=== PATIENT | male | born 1945 | race Caucasian/White ===

== ENCOUNTER 2020-09-06 00:56 | Emergency (ER) | payer MEDICARE, OTHER, SELFPAY ==
[2020-09-06] VITALS (18 sets, daily range): BP systolic 85–135; BP diastolic 54–69; PULSE 59–83; RESP 13–36; TEMP 36.5; O2SAT 97–100
--- NOTE | ~2020-09-06 | XR_ITS ---
EXAMINATION: XR chest 1V INDICATION: Pain after fall TECHNIQUE: AP view of the chest is obtained on two radiographs. COMPARISON: None available FINDINGS: There are widespread sclerotic osseous lesions throughout all visualized bones of the axial and appendicular skeleton. Apparent lung opacities likely reflect sclerotic osseous metastases rathe r than airspace disease. No pleural effusion or pneumothorax is identified. Median sternotomy wires a nd mediastinal surgical clips are seen, likely from prior coronary artery bypass grafting. The heart size is upper limits of normal for technique. IMPRESSION: 1. Widespread sclerotic osseous lesions throughout all visualized bones, consistent with metastatic d isease. 2. No definite cardiopulmonary abnormality. Reviewed, dictated and finalized at location A. E TESTER IMPRESSION: 1. Widespread sclerotic osseous lesions throughout all visualized bones, consis tent with metastatic disease. 2. No definite cardiopulmonary abnormality.
--- NOTE | ~2020-09-06 | CT_ITS ---
EXAMINATION: CT cervical spine wo con DATE: 09/06/2020 01:34 INDICATION: Head injury, neck pain TECHNIQUE: Computed tomography (CT) of the cervical spine was performed without intravenous contrast. The dose-length product (DLP) was 277.30 mGy-cm. Automated exposure control and iterative reconstruc tion technique were employed. COMPARISON: None FINDINGS: There is an acute transverse fracture at the tip of the odontoid with 2 mm of posterior dis placement of the dens fragment. No additional acute fracture is identified. Bone alignment is otherwi se normal. There is severe loss of intervertebral disc space height at C2-3 and C5-6. Moderate facet and uncovertebral joint osteoarthritis is present. There are widespread sclerotic osseous metastases involving all visualized bones. IMPRESSION: 1. Type II odontoid fracture with 2 mm of posterior displacement of the dens fragment. 2. Widespread sclerotic osseous metastases involving all visualized bones. These findings were discussed with Dr. Jacquelyn Dya in the Emergency Department at 0152 hours on 09/06/2020 by the [facility] Radiologist. Reviewed, dictated and finalized at location A. HT COMMUNICATIONS OFFICER IMPRESSION: 1. Type II odontoid fracture with 2 mm of posterior displacement of the dens fr agment. 2. Widespread sclerotic osseous metastases involving all visualized bones. These findings were discussed with Dr. Jacquelyn Day in the Emergency Depart ment at 0152 hours on 09/06/2020 by the [facility] Radiologist.
--- NOTE | ~2020-09-06 | CT_ITS ---
EXAMINATION: CT brain wo con INDICATION: Head injury COMPARISON: None TECHNIQUE: Standard unenhanced head CT. The dose-length product (DLP) was 605.33 mGy-cm. The mA was a djusted according to patient size. Iterative reconstruction technique was employed. FINDINGS: There is an acute right parietal subdural hematoma measuring up to 5 mm in thickness. There is no acute intraparenchymal hemorrhage. No evidence of mass lesion. No evidence of acute infarction . There is mild periventricular and subcortical hypodensity probably related to small vessel ischemic disease. There is mild prominence of the sulci and ventricles related to cerebral atrophy. Intracran ial calcified cerebral atherosclerosis is noted. There is no mass effect or midline shift. The orbits and soft tissues are unremarkable. There is mild mucosal thickening of the paranasal sinuses. There is extensive sclerotic osseous metastatic disease of the skull and spine. IMPRESSION: 1. Acute right parietal subdural hematoma. 2. Age related findings. These findings were discussed with Dr. Jacquelyn Day MD in the Emergency Department at 0152 hours on 09/06/2020 by the [facility] Radiologist. Reviewed, dictated and finalized at location A. ER TENDER IMPRESSION: 1. Acute right parietal subdural hematoma. 2. Age related findings. These findings were discussed with Dr. Jaqcuelyn Day MD in the Emergency De partment at 0152 hours on 09/06/2020 by the [facility] Radiologist.
--- NOTE | 2020-09-06 01:08 | ECG_ITS ---
Measurements Intervals [place] Rate: 78 P: 51 [place]: 310 QRS: 69 QRSD: 89 T: 93 QT: 362 QTc: 413 Interpretive Statements SINUS RHYTHM WITH FIRST DEGREE AV BLOCK ANTEROSEPTAL INFARCT, AGE INDETERMINATE BORDERLINE T WAVE ABNORMALITY- INF/HIGH LAT LEADS BASELINE ARTIFACT- I, II, III, AVR, AVL, AVF, V1-V3 ABNORMAL ECG Electronically Signed On 09-06-2020 7:04:47 KOSHER INSPECTOR by Mak Cohen D.O.
--- NOTE | 2020-09-06 01:19 | ED.FALL ---
HPI - Fall General Chief Complaint: Fall Stated Complaint: fall-cheek and neck pain Time Seen by Provider: 09/06/20 00:57 Source: patient Mode of arrival: EMS Limitations: no limitations History of Present Illness HPI Narrative: This patient is a 74 year old male with history of CAD s/p CABG, CHF who presents from home for evaluation of neck pain s/p fall. He states he was getting up to go the restroom. He reports he was using his walker and he fell forward. HE is not sure why he fell. He thinks he may have gotten dizzy. He reports pain to right posterior neck . His only other complaint is generalized weakness that has been present for several months. He denies chest pain, shortness of breath, cough, fever, nausea, vomiting or extremity pain. He denies reports intermittent diarrhea but does not think it has been significant enough to cause dehydration He hit his right cheek. He does not think he had LOC. He takes aspirin 81 mg daily. Related Data Home Medications Medication Instructions Recorded Confirmed aspirin [Adult Aspirin EC Low 81 mg PO DAILY 09/06/20 Strength] carvedilol 6.25 mg PO BID 09/06/20 cetirizine [Zyrtec] 10 mg PO DAILY 09/06/20 cyanocobalamin (vitamin B-12) 1,000 mcg PO DAILY 09/06/20 [Vitamin B-12] ergocalciferol (vitamin D2) 1,250 mcg PO WEEKLY 09/06/20 [Vitamin D2] finasteride 5 mg PO DAILY 09/06/20 furosemide 40 mg PO DAILY 09/06/20 magnesium 400 mg PO DAILY 09/06/20 pantoprazole [Protonix] 40 mg PO QAM 09/06/20 potassium 20 mg PO BID 09/06/20 rosuvastatin 20 mg PO DAILY 09/06/20 sacubitril-valsartan [Entresto] 1 tablet PO BID 09/06/20 Allergies Allergy/AdvReac Type Severity Reaction Status Date / Time Penicillins Allergy Unknown Verified 09/06/20 01:02 Review of Systems Review of Systems: All systems reviewed & are unremarkable except as noted in HPI and below Constitutional: Constitutional: Reports fatigue Cardiovascular: Cardiovascular: Denies chest pain Respiratory: Respiratory: Denies cough and Denies dyspnea Gastrointestinal: Gastrointestinal: Denies abdominal pain, Denies nausea and Denies vomiting Neurologic: Denies confusion, Reports dizziness, Denies headache(s), Denies focal weakness and Denies numbness PMFSH Past Medical History Medical History (Updated 09/06/20 @ 02:26 by Jacquelyn Day MD) CAD (coronary artery disease) Hypertension Surgical History Surgical History (Updated 09/06/20 @ 01:38 by Jacquelyn Day MD) Hx of CABG Social History Social History (Updated 09/06/20 @ 02:25 by Jacquelyn Day MD) Smoking status: Never smoker Gender identity (if verbalized by the patient): Male Exam Const: General: alert Nutritional Appearance: thin Orientation/consciousness: patient oriented x3 HENMT: Other: right cheek abrasion Eyes: Pupils: Equal, round and reactive pupils present EOM: EOMs intact bilaterally Neck: Other: in cervical collar Resp: Effort & Inspection: normal respiratory effort and no retractions Auscultation: clear to auscultation bilaterally Cardio: Rate: regular rate Rhythm: regular rhythm Heart sounds: no murmurs GI: GI Palp: Yes Soft to palpation, No Tenderness to palpation present (GI) and No Guarding due to palpation present (GI) Auscultation: normal bowel sounds Neuro: General: patient oriented x3 and moves all extremities Extrem: General: no pedal edema Course Reevaluation(s) Reevaluation #1: I Discussed with patient and his that he was found to have SDH and c2 fracture. I also discussed he has signs of metastatic osseous disease. They states they have no been told he has cancer. She states he was told specifically 2 years ago he did not have prostate cancer. They are aware patient needs to be transferred. They request Edith. Date: 09/06/20 Time: 02:18 Reevaluation #2: PAtient is awaiting an ambulance. He is awake alert and oriented x 3 without complaints. Still NVI.
[2020-09-06 01:28] LABS: Basophils Percent Auto 0.4 % (0.2-1.2); Eosinophils Absolute Auto 0.1 K/mm3 (0-0.3); Eosinophils Percent Auto 1.3 % (0-4.4); Hematocrit 24.8 % (42.0-52.0); Hemoglobin 7.2 g/dL (14.0-18.0); Immature Granulocyte Absolute 0.06 K/mm3 (0.00-0.031); Immature Granulocyte Percent A 0.9 % (0-0.5); Lymphocytes Absolute Auto 1.71 K/mm3 (0.9-3.2); Lymphocytes Percent Auto 25.5 % (18.3-44.2); Mean Corpuscular Hemoglobin 23.4 pg (26-34); Mean Corpuscular Volume 80.5 fl (80-100); Monocytes Absolute Auto 0.5 K/mm3 (0.1-0.6); Monocytes Percent Auto 7.9 % (2.6-8.5); Neutrophils Absolute Auto 4.3 K/mm3 (1.3-6.7); Platelet Count Result 177 k/mm3 (150-375); Red Blood Count 3.08 M/mm3 (4.6-6.20); Red Cell Distribution Width 19.9 % (11.5-14.5); White Blood Count 6.7 K/mm3 (4.5-10.0)
[2020-09-06 01:35] LABS: Add Urine Microscopic? YES; Appearance Urine Clear (Clear); Bilirubin Urine Negative (Negative); Blood Urine 1+ (Negative); Color Urine Straw (Yellow); Glucose Urine UA Negative (Negative); Ketones Urine Negative (Negative); Leukocyte Esterase Ur Negative LEU/UL (Negative); Mucus Urine Rare /lpf; Nitrate Urine Negative (Negative); Protein Urine 1+ mg/dL (Negative); RBC Urine 0-2 /hpf (0-2); Specific Grav Ur 1.014 (1.001-1.035); Urobilinogen Urine Negative mg/dL (<2.0); WBC Urine 0-3 /hpf
[2020-09-06 01:38] LABS: INR 1.4; Prothrombin Time 17.9 Seconds (11.1-14.7)
[2020-09-06 01:39] LABS: Partial Thromboplastin Time 29.7 SECONDS (22.3-36.8)
[2020-09-06 01:43] LABS: Alanine Aminotransferase 6 U/L (4-50); Albumin Level 3.5 g/dL (3.5-5.1); Alkaline Phosphatase 486 U/L (38-126); Anion Gap 9 mmol/L (8-16); Aspartate Amino Transferase 40 U/L (17-59); Bilirubin,Total 0.4 mg/dL (0.2-1.3); Blood Urea Nitrogen 28 mg/dL (9-20); Calcium 10.4 mg/dL (8.4-10.2); Carbon Dioxide 21 mmol/L (22-30); Chloride 105 mmol/L (98-107); Estimated CRCL calculation 45 ml/min; Estimated Glomerular Filt Rate > 60; Glucose 107 mg/dL (75-110); Magnesium 2.2 mg/dL (1.6-2.3); Potassium 5.4 mmol/L (3.4-5.0); Sodium 135 mmol/L (137-145)
[2020-09-06 01:48] LABS: Hypochromasia 1+ (NORMAL); Ovalocytes 1+ (NORMAL); Platelet Estimate Adequate (Adequate)
[2020-09-06] MEDS: SODIUM CHLORIDE 0.9% IV 1,000 ML 150 ML IV CONT (02:19)
--- NOTE | 2020-09-06 02:23 | PC.NURSE ---
contacted [facility] and [facility] to transfer patient to [facility]. both companies declined. [facility] accepted eta [phone]
[2020-09-06] MEDS: MANNITOL 20% 500 ML 50 ML IV CONT (02:32)
--- NOTE | 2020-09-06 02:34 | PC.NURSE ---
i was asked by dr matthews to try [facility]. [facility] declined.
--- NOTE | 2020-09-06 03:21 | PC.NURSE ---
[facility] called with a new eta of [phone]
--- NOTE | 2020-09-06 04:09 | PC.NURSE ---
[facility] has arrived
--- NOTE | 2020-09-21 07:43 | PC.NURSE ---
LATE ENTRY This note is being entered to document information to the patient's record. The following information was omitted on [09/21/20], by [[place] ] Pt transferred with normal saline and mannitol infusing.
== END 2020-09-06 04:17 | disposition short-term general hospital (02) ==
PROVIDERS: Emergency Provider General Practice; PCP Internal Medicine
DX: S06.5X0A Traumatic subdural hemorrhage without loss of consciousness, initial encounter (principal); S12.111A Posterior displaced Type II dens fracture, initial encounter for closed fracture; I25.10 Atherosclerotic heart disease of native coronary artery without angina pectoris; I50.9 Heart failure, unspecified; Z95.1 Presence of aortocoronary bypass graft; I11.0 Hypertensive heart disease with heart failure; I44.0 Atrioventricular block, first degree; R94.31 Abnormal electrocardiogram [ECG] [EKG]; R93.7 Abnormal findings on diagnostic imaging of other parts of musculoskeletal system; Z79.82 Long term (current) use of aspirin; W18.30XA Fall on same level, unspecified, initial encounter
CPT/HCPCS: 36415; 70450; 71045; 72125; 80053; 81001; 83735; 85025; 85610; 85730; 93005; 96365; 96366; 96367; 99285; J0131; J7030

== ENCOUNTER 2020-10-16 06:52 | Outpatient (RCR) | payer OTHER, MEDICARE, SELFPAY ==
[2020-10-16 07:21] LABS: Hematocrit 27.3 % (42.0-52.0)
[2020-10-16 08:09] VITALS: TEMP 36.5
[2020-10-16] MEDS: ACETAMINOPHEN 325 MG TABLET 650 MG (08:09)
[2020-10-16] MEDS: diphenhydrAMINE HCl CAP 25 MG CAPSULE (08:10)
[2020-10-16 10:05] VITALS: BP 130/73; PULSE 74; RESP 15; TEMP 36.5; O2SAT 100
[2020-10-16 10:20] VITALS: BP 118/72; PULSE 75; RESP 14; TEMP 36.6; O2SAT 95
[2020-10-16 11:20] VITALS: BP 132/75; PULSE 73; RESP 15; TEMP 36.7; O2SAT 97
[2020-10-16 12:20] VITALS: BP 126/75; PULSE 76; RESP 15; TEMP 36.7; O2SAT 98
[2020-10-16 13:00] VITALS: BP 130/87; PULSE 75; RESP 16; TEMP 36.7; O2SAT 98
== END 2021-01-14 23:59 | disposition home or self-care (01) ==
LOC: ANHCPCTRAN 06:52
PROVIDERS: Visit Provider Internal Medicine Medical Oncology
DX: C61 Malignant neoplasm of prostate (principal)
CPT/HCPCS: 36415; 36430; 85014; 85018; 86850; 86900; 86901; 86923; A9270; J7050; P9016

== ENCOUNTER 2021-08-27 14:52 | Inpatient (IN) | payer MEDICARE, OTHER, SELFPAY ==
[2021-08-27] VITALS (8 sets, daily range): BP systolic 103–143; BP diastolic 61–79; PULSE 56–111; RESP 18–24; TEMP 36.1–36.3; O2SAT 88–100
--- NOTE | ~2021-08-27 | XR_ITS ---
EXAMINATION: XR chest 1V portable EXAM DATE: 08/27/2021 19:43 INDICATION: Weakness. TECHNIQUE: Portable AP frontal chest x-ray was obtained. Comparison is made to prior examination from 09/06/2020.. FINDINGS: There is diffuse bilateral airspace disease, edema or pneumonia. Could be COVID pneumonia g iven the community prevalence. No pneumothorax or pleural effusion. Mild cardiomegaly. Extensive oste oblastic disease. Sternotomy wires are present without findings to suggest sternal dehiscence. IMPRESSION: 1. Diffuse airspace disease, pneumonia or edema. Clinical correlation. 2. Extensive osteoblastic disease unchanged. Reviewed, dictated and finalized at location A. DRILLER
--- NOTE | ~2021-08-27 | NM_ITS ---
EXAMINATION: NM pulmonary perfusion EXAM DATE: 08/27/2021 21:23 INDICATION: Shortness of breath. TECHNIQUE: A perfusion lung scan was performed. The patient was injected with 3.0 mCi technetium 99m MAA and imaged. The Modified PIOPED 2 criteria used for interpretation of this perfusion only study, with 3 possible interpretations (PE present, PE absent, nondiagnostic) based on findings present, an d correlated with a recent chest x-ray. More specifically, a high probability scan will be interprete d as pulmonary embolism present. A normal or near normal scan will be interpreted as pulmonary emboli sm absent. And finally an intermediate probability scan will be interpreted as nondiagnostic. Correl ation is made to chest x-ray same date demonstrating diffuse ill-defined airspace disease. FINDINGS: Scattered subsegmental peripheral regions of decreased perfusion identified bilaterally in patient with diffuse airspace disease on chest x-ray. Decreased activity in the right lower lung zone , with corresponding low lung volume on the chest x-ray. Matched defects. IMPRESSION: Nondiagnostic perfusion scan. Reviewed, dictated and finalized at location A. TAL CARTOGRAPHIC TECHNICIAN
--- NOTE | ~2021-08-27 | US_ITS ---
EXAMINATION: US renal BI DATE: 08/28/2021 15:11 INDICATION: Elevated creatinine. TECHNIQUE: Multiple ultrasound grayscale images of the kidneys were obtained. COMPARISON: None. FINDINGS: The right kidney measures 11.9 x 5.3 x 7.6 cm. The left kidney is absent. The right kidney demonstrat es normal parenchymal echogenicity. There are cysts in right kidney measuring up to 5.6 cm. There is no hydronephrosis. The bladder is not well distended. IMPRESSION: 1. Normal right kidney size. No hydronephrosis. 2. Absent left kidney. Reviewed, dictated and finalized at location A. ING MANAGER
--- NOTE | 2021-08-27 19:33 | ECG_ITS ---
Measurements Intervals [place] Rate: 100 P: -4 [place]: 217 QRS: -6 QRSD: 105 T: 31 QT: 354 QTc: 457 Interpretive Statements SINUS OR ECTOPIC ATRIAL TACHYCARDIA BORDERLINE AV CONDUCTION DELAY POSSIBLE LEFT ATRIAL ENLARGEMENT DELAYED PRECORDIAL R/S TRANSITION CONSIDER INFERIOR INFARCT, AGE INDETERMINATE NONSPECIFIC ST & T-WAVE ABNORMALITY- DIFFUSE LEADS BASELINE ARTIFACT- I, II, AVR ABNORMAL ECG Electronically Signed On 08-28-2021 6:17:27 NEUROLOGY DIRECTOR by Mak Cohen D.O.
[2021-08-27 20:01] LABS: Basophils Percent Auto 0.2 % (0.2-1.2); Eosinophils Percent Auto 0.3 % (0-4.4); Hematocrit 39.9 % (42.0-52.0); Hemoglobin 13.1 g/dL (14.0-18.0); Immature Granulocyte Absolute 0.05 K/mm3 (0.00-0.031); Immature Granulocyte Percent A 0.6 % (0-0.5); Lymphocytes Absolute Auto 0.89 K/mm3 (0.9-3.2); Lymphocytes Percent Auto 9.8 % (18.3-44.2); Mean Corpuscular HGB Conc 32.8 g/dl (32-36); Mean Corpuscular Hemoglobin 29.6 pg (26-34); Mean Corpuscular Volume 90.1 fl (80-100); Mean Platelet Volume 8.5 fl (7.4-10.4); Monocytes Absolute Auto 0.2 K/mm3 (0.1-0.6); Monocytes Percent Auto 1.8 % (2.6-8.5); Neutrophils Absolute Auto 7.9 K/mm3 (1.3-6.7); Neutrophils Percent Auto 87.3 % (45.5-73.1); Platelet Count Result 94 k/mm3 (150-375); Red Blood Count 4.43 M/mm3 (4.6-6.20); Red Cell Distribution Width 14.6 % (11.5-14.5); White Blood Count 9.1 K/mm3 (4.5-10.0)
--- NOTE | 2021-08-27 20:13 | ED.GENADULT ---
HPI - General Adult General Chief complaint: Weakness Stated complaint: feel like crap Time Seen by Provider: 08/27/21 19:29 Source: patient and RN notes reviewed History of Present Illness HPI narrative: Patient is a 75 y/o male complaining of moderate to severe generalized weakness starting several weeks ago. He states that walking or exertion makes his symptoms worse. He has some cough and SOB. He has no fever. Related Data Home Medications Medication Instructions Recorded Confirmed aspirin [Adult Aspirin EC Low 81 mg PO DAILY 09/06/20 08/27/21 Strength] carvedilol 12.5 mg PO BID 09/06/20 08/27/21 cetirizine [Zyrtec] 10 mg PO DAILY 09/06/20 08/27/21 cyanocobalamin (vitamin B-12) 1,000 mcg PO DAILY 09/06/20 08/27/21 [Vitamin B-12] furosemide 40 mg PO DAILY 09/06/20 08/27/21 pantoprazole [Protonix] 40 mg PO BID 09/06/20 08/27/21 sacubitril-valsartan [Entresto] 1 tablet PO BID 09/06/20 08/27/21 degarelix 80 mg subcutaneous 80 mg SUBCUT Q28D 02/09/21 08/27/21 solution denosumab 60 mg/mL subcutaneous 120 mg SUBCUT [id number] 02/09/21 08/27/21 syringe metolazone 2.5 mg tablet 5 mg PO DAILY 02/09/21 08/27/21 abiraterone 1,000 mg PO DAILY 08/27/21 08/27/21 acetaminophen 1,000 mg PO HS 08/27/21 08/27/21 prednisone 10 mg PO DAILY 08/27/21 08/27/21 rosuvastatin 20 mg PO WEEKLY 08/27/21 08/27/21 sucralfate [Carafate] 1 g PO QID 08/27/21 08/27/21 Allergies Allergy/AdvReac Type Severity Reaction Status Date / Time Penicillins Allergy Unknown Verified 08/28/21 02:56 Review of Systems Constitutional: Constitutional: Denies chills, Denies fever(s), Denies headache(s) and Denies weakness Eyes: Eyes: Denies blurry vision ENT: Denies headache(s) and Denies neck pain Cardiovascular: Cardiovascular: Denies chest pain and Denies dyspnea Respiratory: Respiratory: Reports cough and Reports dyspnea Gastrointestinal: Gastrointestinal: Denies abdominal pain, Denies diarrhea, Denies nausea and Denies vomiting Genitourinary: Genitourinary: Denies hematuria and Denies dysuria Musculoskeletal: Musculoskeletal: Denies back pain and Denies neck pain Neurologic: Denies headache(s) and Reports weakness PMFSH Past Medical History Medical History Allergic rhinitis CAD (coronary artery disease) Change in weight CHF (congestive heart failure) Congenital single kidney Essential (primary) hypertension GERD (gastroesophageal reflux disease) Heart attack Hyperlipidemia Hypertension Prostate cancer Surgical History Surgical History Hx of CABG 5 vessel CABG EF 40% followed with Dr. Cal Weeks Family History Family History Mother Breast cancer Diabetes mellitus Hypertension Heart disease Thyroid disorder Father Heart disease Sibling Heart disease Grandparent Hypertension Heart disease Grandparent Diabetes mellitus Heart disease Social History Social History Smoking status: Never smoker Second hand tobacco smoke exposure: Yes Alcohol intake: never Substance use: never Substance use type: does not use Gender identity (if verbalized by the patient): Male Sexual Orientation (if Verbalized by the Patient): Straight or Heterosexual Spiritual care concerns: No Exam Const: General: no acute distress and ill appearing Orientation/consciousness: oriented to person, oriented to place, oriented to time and patient oriented x3 HENMT: Head: normocephalic Ears: external ears normal General nose exam: Normal external nose present Eyes: General: appearance normal, both eyes and all related structures Conjunctivae: conjunctivae normal Neck: Neck: normal visual inspection and full ROM Chest: Chest palpation & inspection: normal inspection of the chest and
[2021-08-27 20:14] LABS: Alanine Aminotransferase 8 U/L (4-50); Albumin Level 3.6 g/dL (3.5-5.1); Alkaline Phosphatase 107 U/L (38-126); Anion Gap 11 mmol/L (8-16); Aspartate Amino Transferase 16 U/L (17-59); Bilirubin,Total 0.5 mg/dL (0.2-1.3); Blood Urea Nitrogen 40 mg/dL (9-20); Calcium 8.6 mg/dL (8.4-10.2); Carbon Dioxide 25 mmol/L (22-30); Chloride 89 mmol/L (98-107); Estimated CRCL calculation 32 ml/min; Estimated Glomerular Filt Rate 33; Glucose 105 mg/dL (65-110); Potassium 4.2 mmol/L (3.4-5.0); Sodium 125 mmol/L (137-145)
[2021-08-27 20:15] LABS: D Dimer 1.73 ug/mL (<0.48)
[2021-08-27 20:23] LABS: NT Pro B Type Natriuretic Pept 16500 pg/mL (5-100)
[2021-08-27 20:26] LABS: Troponin I 0.012 ng/mL (0.000-0.034)
[2021-08-27 20:35] LABS: EDCOVIDSCREEN Negative (Negative)
[2021-08-27 23:24] LABS: Troponin I < 0.012 ng/mL (0.000-0.034)
[2021-08-27] MEDS: SODIUM CHLORIDE 0.9% IV 1,000 ML 70 ML IV CONT (23:38)
[2021-08-28] VITALS (12 sets, daily range): BP systolic 91–110; BP diastolic 57–67; PULSE 67–110; RESP 18–22; TEMP 36.1–36.2; O2SAT 90–97
--- NOTE | 2021-08-28 | ECHO_ITS ---
Patient Info Name: Marek Young Age: 75 years : 1945 Gender: Male Ht: 71 in Wt: 170 lbs BSA: 1.97 m2 HR: 98 bpm BP: 91 / 57 mmHg Heart Rhythm: Atrial Fibrillation Technical Quality: Fair Exam Date: 08/28/2021 12:51 PM Exam Location: [facility] Pulmonary Patient Status: Inpatient Admit Date: 08/27/2021 Staff Ordering Physician: Avis Castillo DO Senior Resident Care Director: Wendy Coburn RDCS Attending Provider: Denise Osborn PA-C Referring Physician: Jonathan JERNIGAN; Exam Type: CA echo doppler color flow Study Info Indications - Herat failure Complete two-dimensional, color flow and Doppler transthoracic echocardiogram is performed. Summary 1. Complete two-dimensional, color flow and Doppler transthoracic echocardiogram is performed. 2. Left ventricular chamber dimension is normal. 3. Left ventricular systolic function is mildly reduced, estimated at 45-50%. 4. There is moderate asymmetric septal increased left ventricular wall thickness. 5. Left ventricular septal wall motion is abnormal with septal motion related to bundle branch block. 6. The left ventricular diastolic function is normal. 7. E/e' 6 is not elevated. 8. Atrial fibrillation. 9. Right ventricular systolic function is mildly reduced with abnormal TAPSE 1.5 cm. 10. Right ventricular chamber dimension is moderately enlarged. 11. Left atrial chamber dimension is mildly enlarged. 12. Right atrial chamber dimension is moderately enlarged. 13. There is moderate aortic valve sclerosis. 14. The mitral valve has mildly calcified annulus. 15. There is mild tricuspid valve regurgitation. 16. Moderate pulmonary hypertension, estimated pulmonary arterial systolic pressure is 53 mmHg. 17. There is trivial pericardial effusion. Left Ventricle E/e' 6 is not elevated. Left ventricular chamber dimension is normal. Left ventricular systolic function is mildly reduced, estimated at 45-50%. There is moderate asymmetric septal increased left ventricular wall thickness. Left ventricular septal wall motion is abnormal with septal motion related to bundle branch block. The left ventricular diastolic function is normal. Atrial fibrillation. Right Ventricle Right ventricular systolic function is mildly reduced with abnormal TAPSE 1.5 cm. Right ventricular chamber dimension is moderately enlarged. Left Atria Left atrial chamber dimension is mildly enlarged. Right Atria Right atrial chamber dimension is moderately enlarged. Aortic Valve The aortic valve is trileaflet. There is moderate aortic valve sclerosis. There is no aortic valve stenosis. There is no aortic valve regurgitation. Pulmonic Valve There is no pulmonic regurgitation. Mitral Valve The mitral valve has mildly calcified annulus. There is no mitral valve stenosis. There is no mitral valve regurgitation. Tricuspid Valve There is mild tricuspid valve regurgitation. Moderate pulmonary hypertension, estimated pulmonary arterial systolic pressure is 53 mmHg. Pericardium/Pleural There is trivial pericardial effusion. Inferior Vena Cava Normal inferior vena cava with >50% collapse upon inspiration consistent with normal right atrial pressure, 5 mmHg. Aorta The aortic root size at the sinus of Valsalva is normal. Left Ventricular Outflow Tract Name Value Normal
--- NOTE | 2021-08-28 02:13 | PC.NURSE ---
attempted to call report nurse will call back
--- NOTE | 2021-08-28 02:46 | ADMGEN ---
This patient, Marek Young Jr., was admitted to 3 [facility] Surg Room 319-01. Patient/family oriented to hospital policies and general routines including ID bracelet, bed and alarms, visiting hours, pain management, procedures, bathroom and other care routines, personal items, smoking policy, room service/diet, and visiting hours. Information on how to activate the Rapid Response Team has been discussed. Patient/Family are encouraged to report perceived risks to care and to ask questions if they do not understand what they are told or what they should do.
[2021-08-28 03:38] LABS: Troponin I 0.013 ng/mL (0.000-0.034)
--- NOTE | 2021-08-28 06:10 | PM.IMHP ---
H&P: HPI History of Present Illness Date/Time: 08/28/21 06:10 Chief Complaint: Weakness Narrative: 75-year-old male with past medical history coronary artery disease, CHF and congenital single kidney who presented to the ER with generalized weakness for 2 weeks. The patient can usually walk at baseline but over the the last several days has had to start using a wheelchair. At the time of my evaluation when I arrived to the patient's bedside he was sitting in bed with head of bed elevated and had was slouched down between the side of the bed in the bed rail and was unable to reposition himself. The patient reports that he has been having increased shortness of breath with activity. He has had a cough with significant postnasal drip and upper respiratory symptoms. He denies any sore throat. He reports that his cough is moist. He denies any fevers or chills. He is vaccinated against COVID-19 and received his COVID booster in June or July. He reports that he never has lower extremity swelling even with his CHF exacerbations. He will have abdominal swelling with his CHF exacerbations. He had been having some abdominal swelling previously but since admission to the hospital was abdominal swelling has improved. He has been having a couple of loose stools each morning for the last week or so. This is odd since the patient has been having some gentle IV fluid hydration since admission. Patient was receiving IV fluid hydration as he appears hemoconcentrated with a hemoglobin 4 grams higher than his baseline and BUN double his baseline. He denies any dysuria changes in urinary frequency. He does report that his. His urine may be slightly darker than usual. He has not been having much appetite. The patient reports that he takes Coreg, Entresto and Lasix on a daily basis for his CHF. He only takes metolazone once per month as needed for his CHF depending on his fluid status. Review of Systems Review of Systems: 12 systems were reviewed with pertinent positives and negatives per HPI. Except as documented in the HPI, all other systems were reviewed and are negative. [facility] Past Medical History Medical History (Updated 08/28/21 @ 08:53 by Avis Castillo DO) Allergic rhinitis CAD (coronary artery disease) Change in weight CHF (congestive heart failure) Congenital single kidney Essential (primary) hypertension GERD (gastroesophageal reflux disease) Heart attack Hyperlipidemia Hypertension Prostate cancer Surgical History Surgical History (Updated 08/28/21 @ 08:51 by Avis Castillo, DO) Hx of CABG 5 vessel CABG EF 40% followed with Dr. Cal Weeks Family History Family History Mother Breast cancer Diabetes mellitus Hypertension Heart disease Thyroid disorder Father Heart disease Sibling Heart disease Grandparent Hypertension Heart disease Grandparent Diabetes mellitus Heart disease Social History Social History Smoking status: Never smoker Second hand tobacco smoke exposure: Yes Alcohol intake: never Substance use: never Substance use type: does not use Gender identity (if verbalized by the patient): Male Sexual Orientation (if Verbalized by the Patient): Straight or Heterosexual Spiritual care concerns: No Meds Home Medications and Allergies Home Medications Medication Instructions Recorded Confirmed Type aspirin [Adult Aspirin EC Low 81 mg PO DAILY 09/06/20 08/27/21 History Strength] carvedilol 12.5 mg PO BID 09/06/20 08/27/21 History cetirizine [Zyrtec] 10 mg PO DAILY 09/06/20 08/27/21 History cyanocobalamin (vitamin B-12) 1,000 mcg PO DAILY 09/06/20 08/27/21 History [Vitamin B-12] furosemide 40 mg PO DAILY 09/06/20 08/27/21 History pantoprazole [Protonix] 40 mg PO BID 09/06/20 08/27/21 History sacubitril-valsartan [Entresto] 1 tablet
[2021-08-28 07:11] LABS: Alanine Aminotransferase 7 U/L (4-50); Albumin Level 3.1 g/dL (3.5-5.1); Alkaline Phosphatase 82 U/L (38-126); Anion Gap 8 mmol/L (8-16); Aspartate Amino Transferase 13 U/L (17-59); Bilirubin,Total 0.5 mg/dL (0.2-1.3); Blood Urea Nitrogen 42 mg/dL (9-20); Carbon Dioxide 25 mmol/L (22-30); Chloride 90 mmol/L (98-107); Estimated CRCL calculation 30 ml/min; Estimated Glomerular Filt Rate 31; Glucose 89 mg/dL (65-110); Potassium 3.6 mmol/L (3.4-5.0); Sodium 123 mmol/L (137-145)
[2021-08-28 07:28] LABS: Hematocrit 35.1 % (42.0-52.0); Hemoglobin 11.2 g/dL (14.0-18.0); Mean Corpuscular HGB Conc 31.9 g/dl (32-36); Mean Corpuscular Hemoglobin 29.3 pg (26-34); Mean Corpuscular Volume 91.9 fl (80-100); Mean Platelet Volume 8.7 fl (7.4-10.4); Platelet Count Result 81 k/mm3 (150-375); Red Blood Count 3.82 M/mm3 (4.6-6.20); Red Cell Distribution Width 14.5 % (11.5-14.5)
[2021-08-28] MEDS: FINASTERIDE 5 MG TABLET PO (09:05)
[2021-08-28] MEDS: ASPIRIN 81 MG ENTERIC TABLET PO (09:05)
[2021-08-28] MEDS: PANTOPRAZOLE 40 MG TABLET PO ×2 (09:05→17:05)
[2021-08-28] MEDS: LORATADINE 10 MG TABLET PO (09:05)
[2021-08-28] MEDS: SUCRALFATE 1 GM TABLET PO ×4 (09:05→21:13)
[2021-08-28] MEDS: predniSONE 10 MG TABLET PO (09:05)
[2021-08-28] MEDS: CYANOCOBALAMIN 1,000 MCG TABLET 1000 MCG PO (09:05)
[2021-08-28 10:26] LABS: Sodium 125 mmol/L (137-145)
--- NOTE | 2021-08-28 11:03 | PM.CNNEP ---
Assessment and Plan Assessment and plan (1) Acute renal failure: Qualifiers: Acute renal failure type: unspecified Qualified Code(s): N17.9 - Acute kidney failure, unspecified Code(s): N17.9 - Acute kidney failure, unspecified Status: Acute Assessment and Plan: The patient has acute kidney injury. He was born with just 1 kidney. He had a creatinine of 1.01 year ago. He has had blood work as an outpatient in between times. Will try to get these from his oncologist. The patient is on diuretics. They have not changed much however so I would be surprised if this alone was causing his renal failure. He says he has been eating and drinking okay. He does not have any symptoms or signs of glomerulonephritis or interstitial nephritis. No suggestive of rhabdomyolysis either. Obstruction is always a possibility especially in someone with only 1 kidney. He does have a chest x-ray with diffuse infiltrates. He had a COVID test which was negative but the confirmatory test is pending. The chest x-ray could be from COVID, which could cause kidney disease as well. Adjustment will get a renal ultrasound urine electrolytes and a CPK. We will see with the COVID test shows. We should get an echocardiogram to see where we are with this heart function as well. Severe cardiomyopathy could give pulmonary infiltrates plus renal failure as well. (2) Hyponatremia: Code(s): E87.1 - Hypo-osmolality and hyponatremia Status: Acute Assessment and Plan: Sodium level is low. He did have a mildly low sodium a year ago but this is much worse. 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 Will give him fluid restriction right now. He is getting sodium chloride. Will see what the other tests show to decide what to do next. (3) Generalized weakness: Code(s): R53.1 - Weakness Status: Acute Assessment and Plan: Probably related to his hemodynamic status plus renal plus sodium. If he has COVID does certainly would be contributing as well. (4) Acute respiratory failure with hypoxia: Code(s): J96.01 - Acute respiratory failure with hypoxia Status: Acute Assessment and Plan: He is satting well on oxygen. (5) Essential (primary) hypertension: Code(s): I10 - Essential (primary) hypertension Status: Acute Assessment and Plan: His blood pressure is a little bit soft. He is getting some IV fluids. (6) Hyperlipidemia: Qualifiers: Hyperlipidemia type: unspecified Qualified Code(s): E78.5 - Hyperlipidemia, unspecified Code(s): E78.5 - Hyperlipidemia, unspecified Status: Acute Assessment and Plan: He is on rosuvastatin. (7) CHF (congestive heart failure): Qualifiers: Heart failure type: unspecified Heart failure chronicity: unspecified Qualified Code(s): I50.9 - Heart failure, unspecified Code(s): I50.9 - Heart failure, unspecified Status: Acute Assessment and Plan: He is on Entresto. (8) Prostate cancer: Code(s): C61 - Malignant neoplasm of prostate Status: Acute Assessment and Plan: He follows with Oncology. History of Present Illness Reason for Consult Consult date: 08/28/21 Chief Complaint Chief complaint: CHF, Hypoxia History of Present Illness Narrative: Carie cabezas is a very pleasant 75-year-old gentleman with multiple medical problems including coronary artery disease, congestive heart failure but unknown EF, congenital single kidney, GERD, hyperlipidemia, prostate cancer with metastases to the bone followed by Dr. Ibanez. The patient came to the hospital today because of weakness. He has been gradually weaker over the last 2 weeks. Swelling is a little worsened shortness of breath i
[2021-08-28] MEDS: ALBUMIN HUMAN 25% 25 GM/100 ML 200 ML IVPB (11:46)
[2021-08-28 13:18] LABS: Creatine Kinase 32 U/L (55-170)
[2021-08-28 13:55] LABS: SARS-CoV-2 RNA PCR Negative
[2021-08-28 15:50] LABS: Add Urine Microscopic? YES; Appearance Urine Cloudy (Clear); Bacteria Urine Trace /hpf; Bilirubin Urine Negative (Negative); Blood Urine 1+ (Negative); Budding Yeast Urine Present /hpf; Color Urine Yellow (Yellow); Glucose Urine UA Negative (Negative); Ketones Urine Negative (Negative); Leukocyte Esterase Ur 3+ LEU/UL (Negative); Nitrate Urine Negative (Negative); Protein Urine Negative (Negative); RBC Urine 21-50 /hpf (0-2); Specific Grav Ur 1.014 (1.001-1.035); Urobilinogen Urine Negative mg/dL (<2.0); WBC Urine >75 /hpf
--- NOTE | 2021-08-28 16:01 | P.PNIM_ITS ---
Progress Note: A&P Assessment and Plan (1) Acute respiratory failure with hypoxia: Code(s): J96.01 - Acute respiratory failure with hypoxia Status: Acute Assessment and Plan: Patient is requiring 4 L supplemental O2 per nasal cannula. Likely secondary to pneumonia vs pulmonary edema * CXR shows diffuse airspace disease * COVID-19 PCR testing is negative. Isolation precautions can be discontinued * Will proceed with further testing including influenza, Legionella and pneumococcal urinary antigens * At this time will start antibiotics for CAP. Begin Rocephin and azithromycin. * Supportive care to include bronchodilators, expectorants, antipyretics, incentive spirometry * Patient at first appeared volume depleted and was rehydrated with fluids. Fluids have been discontinued. Will hold off on further diuresis at this point based on his acute renal failure and dehydration * Monitor volume status closely. Follow intake and output and daily weights * Echocardiogram is pending (2) Acute renal failure: Qualifiers: Acute renal failure type: unspecified Qualified Code(s): N17.9 - Acute kidney failure, unspecified Code(s): N17.9 - Acute kidney failure, unspecified Status: Acute Assessment and Plan: Creatinine 1 year ago was within normal limits at 1.0. Creatinine up to 2.1 today * Passively due to volume depletion * Appreciate nephrology consultation * Holding diuretics * Renal ultrasound showed normal right kidney without hydronephrosis. No evidence of obstruction. 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 Hold nephrotoxic agents including furosemide, metolazone, entresto * Records have been requested to obtain more updated baseline (3) Thrombocytopenia: Code(s): D69.6 - Thrombocytopenia, unspecified Status: Acute Assessment and Plan: Mild. Platelet count 84261 today * May be related to his prostate cancer vs cancer treatment * Possibly due to underlying viral illness/acute infectious process * Continue to trend (4) Hyponatremia: Code(s): E87.1 - Hypo-osmolality and hyponatremia Status: Acute Assessment and Plan: Sodium down to 123 this morning. * Received IV fluids this morning; have not been discontinued * Transitioned per Nephrology recommendations to fluid restriction diet * Awaiting urine electrolytes * Sodium increased to 125. Recheck sodium this afternoon and this evening to ensure appropriate rate of correction * Appreciate nephrology recommendations (5) Generalized weakness: Code(s): R53.1 - Weakness Status: Acute Assessment and Plan: Likely secondary to acute illness. * Appreciate PT/OT eval * Fall precautions (6) Prostate cancer: Code(s): C61 - Malignant neoplasm of prostate Status: Acute Assessment and Plan: Patient with history of prostate cancer with bony mets * Continue with home medication regimen Subjective Date/time seen: 08/28/21 16:01 Interval history: Date of service: 08/28/2021 Marek Young is a 75-year-old male with a history of CAD, CHF, congenital solitary kidney, hypertension, hyperlipidemia, and prostate cancer with bone metastases who is seen in follow-up for pneumonia. He is starting to feel better today. His breathing has improved and he is no longer feeling signific antly short of breath. He does still endorse conversational dyspnea as well as CASTRO. He also endorses cough productive of clear, frothy
--- NOTE | 2021-08-28 16:01 | PM.IMPN ---
Progress Note: A&P Assessment and Plan (1) Acute respiratory failure with hypoxia: Code(s): J96.01 - Acute respiratory failure with hypoxia Status: Acute Assessment and Plan: Patient is requiring 4 L supplemental O2 per nasal cannula. Likely secondary to pneumonia vs pulmonary edema CXR shows diffuse airspace disease COVID-19 PCR testing is negative. Isolation precautions can be discontinued Will proceed with further testing including influenza, Legionella and pneumococcal urinary antigens At this time will start antibiotics for CAP. Begin Rocephin and azithromycin. Supportive care to include bronchodilators, expectorants, antipyretics, incentive spirometry Patient at first appeared volume depleted and was rehydrated with fluids. Fluids have been discontinued. Will hold off on further diuresis at this point based on his acute renal failure and dehydration Monitor volume status closely. Follow intake and output and daily weights Echocardiogram is pending (2) Acute renal failure: Qualifiers: Acute renal failure type: unspecified Qualified Code(s): N17.9 - Acute kidney failure, unspecified Code(s): N17.9 - Acute kidney failure, unspecified Status: Acute Assessment and Plan: Creatinine 1 year ago was within normal limits at 1.0. Creatinine up to 2.1 today Passively due to volume depletion Appreciate nephrology consultation Holding diuretics Renal ultrasound showed normal right kidney without hydronephrosis. No evidence of obstruction. 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 Hold nephrotoxic agents including furosemide, metolazone, entresto Records have been requested to obtain more updated baseline (3) Thrombocytopenia: Code(s): D69.6 - Thrombocytopenia, unspecified Status: Acute Assessment and Plan: Mild. Platelet count [id number] today May be related to his prostate cancer vs cancer treatment Possibly due to underlying viral illness/acute infectious process Continue to trend (4) Hyponatremia: Code(s): E87.1 - Hypo-osmolality and hyponatremia Status: Acute Assessment and Plan: Sodium down to 123 this morning. Received IV fluids this morning; have not been discontinued Transitioned per Nephrology recommendations to fluid restriction diet Awaiting urine electrolytes Sodium increased to 125. Recheck sodium this afternoon and this evening to ensure appropriate rate of correction Appreciate nephrology recommendations (5) Generalized weakness: Code(s): R53.1 - Weakness Status: Acute Assessment and Plan: Likely secondary to acute illness. Appreciate PT/OT eval Fall precautions (6) Prostate cancer: Code(s): C61 - Malignant neoplasm of prostate Status: Acute Assessment and Plan: Patient with history of prostate cancer with bony mets Continue with home medication regimen Subjective Date/time seen: 08/28/21 16:01 Interval history: Date of service: 08/28/2021 Marek Young is a 75-year-old male with a history of CAD, CHF, congenital solitary kidney, hypertension, hyperlipidemia, and prostate cancer with bone metastases who is seen in follow-up for pneumonia. He is starting to feel better today. His breathing has improved and he is no longer feeling significantly short of breath. He does still endorse conversational dyspnea as well as CASTRO. He also endorses cough productive of clear, frothy sputum. He feels weak and is requiring assistance with getting up. He states that his appetite is improving. He still has a sense of taste and smell. He denies nausea, vomiting, fever, chills, dizziness, or lightheadedness. He does endorse chronic diarrhea. Denies urinary symptoms. No chest pain or palpitations. Review of Systems Review of Systems: All systems reviewed & are unremarkable except as note
[2021-08-28 16:13] LABS: Creatinine Urine 146.2 mg/dL; Total Protein Urine Random 22 mg/dL; Ur Ttl Prot Creatinine Ratio 0.15 mg/mg (0-0.20)
[2021-08-28 16:20] LABS: Sodium Urine Random 7 meq/L
[2021-08-28 17:01] LABS: Anion Gap 10 mmol/L (8-16); Blood Urea Nitrogen 46 mg/dL (9-20); Calcium 7.8 mg/dL (8.4-10.2); Carbon Dioxide 22 mmol/L (22-30); Chloride 91 mmol/L (98-107); Estimated CRCL calculation 28 ml/min; Estimated Glomerular Filt Rate 28; Glucose 103 mg/dL (65-110); Potassium 3.9 mmol/L (3.4-5.0); Sodium 123 mmol/L (137-145)
[2021-08-28 17:19] LABS: Influenza Control Positive
[2021-08-28] MEDS: carvediloL 12.5 MG TABLET PO (17:42)
[2021-08-28] MEDS: FUROSEMIDE 20 MG TABLET PO (18:05)
[2021-08-28] MEDS: SODIUM CHLORIDE 1 GM TABLET PO (18:05)
[2021-08-28] MEDS: ROSUVASTATIN 10 MG TABLET 20 MG PO (21:13)
[2021-08-28] MEDS: ACETAMINOPHEN 500 MG TABLET 1000 MG PO (21:13)
[2021-08-28 22:26] LABS: Sodium 124 mmol/L (137-145)
[2021-08-29] VITALS: PULSE 89
[2021-08-29] MEDS: SUCRALFATE 1 GM TABLET PO (05:38)
[2021-08-29 05:44] VITALS: BP 123/68; PULSE 88; RESP 20; TEMP 36.1; O2SAT 99
[2021-08-29 08:00] VITALS: O2SAT 94
[2021-08-29] MEDS: ASPIRIN 81 MG ENTERIC TABLET PO (08:14)
[2021-08-29] MEDS: predniSONE 10 MG TABLET PO (08:14)
[2021-08-29] MEDS: SODIUM CHLORIDE 1 GM TABLET PO (08:14)
[2021-08-29 08:15] VITALS: PULSE 84
[2021-08-29] MEDS: CYANOCOBALAMIN 1,000 MCG TABLET 1000 MCG PO (08:15)
[2021-08-29] MEDS: LORATADINE 10 MG TABLET PO (08:15)
[2021-08-29] MEDS: carvediloL 12.5 MG TABLET PO (08:15)
[2021-08-29] MEDS: FINASTERIDE 5 MG TABLET PO (08:15)
[2021-08-29] MEDS: FUROSEMIDE 20 MG TABLET PO (08:15)
[2021-08-29] MEDS: PANTOPRAZOLE 40 MG TABLET PO (08:16)
[2021-08-29 09:03] LABS: Hematocrit 35.1 % (42.0-52.0); Hemoglobin 11.2 g/dL (14.0-18.0); Mean Corpuscular HGB Conc 31.9 g/dl (32-36); Mean Corpuscular Volume 94.1 fl (80-100); Mean Platelet Volume 9.2 fl (7.4-10.4); Platelet Count Result 76 k/mm3 (150-375); Red Blood Count 3.73 M/mm3 (4.6-6.20); Red Cell Distribution Width 14.6 % (11.5-14.5); White Blood Count 8.6 K/mm3 (4.5-10.0)
[2021-08-29 09:19] LABS: Anion Gap 13 mmol/L (8-16); Blood Urea Nitrogen 53 mg/dL (9-20); Calcium 7.9 mg/dL (8.4-10.2); Carbon Dioxide 20 mmol/L (22-30); Chloride 90 mmol/L (98-107); Estimated CRCL calculation 23 ml/min; Estimated Glomerular Filt Rate 22; Glucose 92 mg/dL (65-110); Potassium 3.9 mmol/L (3.4-5.0); Sodium 123 mmol/L (137-145)
[2021-08-29 09:20] LABS: Albumin Level 3.2 g/dL (3.5-5.1); Anion Gap 11 mmol/L (8-16); Blood Urea Nitrogen 52 mg/dL (9-20); Calcium 7.8 mg/dL (8.4-10.2); Carbon Dioxide 20 mmol/L (22-30); Chloride 90 mmol/L (98-107); Estimated CRCL calculation 22 ml/min; Estimated Glomerular Filt Rate 21; Glucose 93 mg/dL (65-110); Phosphorus 2.9 mg/dL (2.5-4.5); Sodium 121 mmol/L (137-145)
--- NOTE | 2021-08-29 09:51 | PC.NURSE ---
0956 this nurse was called out by tech in room. Found pt to be unresponsive with agonal breathing. Called for a rapid response at first. Nursing preparation plant supervisor ash Sepulveda then went into room. Checked for pulse but could not find a pulse. Called a code blue. Started chest compressions. Josiah the chapelin called the . She stated no chest compressions. called time of at 0944.
[2021-08-29 09:53] LABS: Glucose Point of Care 122 mg/dl (65-105)
[2021-08-29 10:49] VITALS: PULSE 70
--- NOTE | 2021-08-29 11:10 | P.DN_ITS ---
Discharge Summary Date and Time Date of : 08/29/21 Time of : 09:44 Provider Pronounced By: Dr. Hitchcock Probable Cause of Probable Cause of : Cardiac arrest Summary Hospital Course: Date of admission: 08/28/2021 Date of : 08/29/2021 Marek Young is a 75-year-old male with a history of CAD, CHF, congenital solitary kidney, hypertension, hyperlipidemia, and prostate cancer with bone metastases who was admitted to the hospital on 08/28/2021 with acute respiratory failure with hypoxia secondary to pneumonia and possible CHF exacerbation, requiring up to 4 L supplemental O2 per nasal cannula. Hospital course was complicated by acute renal failure, hyponatremia, and generalized weakness. On 08/29/21 a code was called as the patient was found unresponsive and without a pulse. CPR was initiated. Family was contacted and requested to discontinue resuscitation efforts. Suspected cause of likely related to ischemic cardiomyopathy based on review of echocardiogram. Additional Data Confirmation of as documented by pronouncing clinician: Pupillary Reflex, Palpable Pulses, Response to Stimuli, Heart Tones and Breath Sounds Name of Provider Notified: Dr. Tesfaye Concepcion Provider Notified: 09:44 Provider Requests Autopsy: No Family Requests Autopsy: No [employer] Pipe Covering Supervisor Notified: Yes Date [facility] Notified of : 08/29/21 Time [facility] Notified of : 10:12
[2021-08-30 19:17] LABS: Osmolality, Urine 292 mOsm/kg (50-1200)
[2021-08-31 12:58] LABS: Pneumococcal Antigen Urine Detected (Not Detected)
[2021-08-31 21:08] LABS: Legionella pneumophila Ag Ur Not Detected (Not Detected)
== END 2021-08-29 09:44 | disposition expired | DRG 189 ==
LOC: ANHED 19:58 → ANH3MEDSUR 08-28 02:56
PROVIDERS: Internal Medicine Nephrology; Admitting Provider Internal Medicine; Emergency Provider Emergency Medicine; PCP Internal Medicine; Visit Provider Physician Assistant
DX: J96.01 Acute respiratory failure with hypoxia (principal); J18.9 Pneumonia, unspecified organism; Q60.0 Renal agenesis, unilateral; N17.9 Acute kidney failure, unspecified; E87.1 Hypo-osmolality and hyponatremia; C79.51 Secondary malignant neoplasm of bone; I42.9 Cardiomyopathy, unspecified; I25.10 Atherosclerotic heart disease of native coronary artery without angina pectoris; I46.9 Cardiac arrest, cause unspecified; I50.9 Heart failure, unspecified; D69.6 Thrombocytopenia, unspecified; I11.0 Hypertensive heart disease with heart failure; K21.9 Gastro-esophageal reflux disease without esophagitis; E78.5 Hyperlipidemia, unspecified; Z20.822 Contact with and (suspected) exposure to COVID-19; Z85.46 Personal history of malignant neoplasm of prostate; Z95.1 Presence of aortocoronary bypass graft; Z79.82 Long term (current) use of aspirin
CPT/HCPCS: 36415; 71045; 76775; 78580; 80048; 80053; 80069; 81001; 82533; 82550; 82570; 82948; 83880; 83930; 83935; 84156; 84295; 84300; 84443; 84484; 85025; 85027; 85380; 87077; 87086; 87088; 87186; 87426; 87449; 87804; 87899; 93005; 93306; 97161; 97165; 99285; A9270; A9540; C9803; J0171; J0456; J0696; J7030; J7512; P9047; U0003; U0005